=== PATIENT | male | born 1965 | race Asian ===

== ENCOUNTER 2018-10-09 08:48 | Emergency (ER) | payer OTHER, SELFPAY ==
[2018-10-09 08:49] VITALS: BP 165/106; PULSE 112; RESP 18; TEMP 36.6; O2SAT 99; BMI 29.1
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
[2018-10-09] MEDS: Diphth,Pertuss(Acell),Tet Vac 0.5 ML Vial IM (09:21)
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
[2018-10-09 11:18] LABS: HIV - WCH Non-Reactive (Nonreactive)
[2018-10-10 12:12] LABS: HEPATITIS B SURFACE AG Negative (Negative); Hep B Surface Antibodies EMP Non Reactive (.); Hep C Antibodies <0.1 s/co ratio (0.0-0.9)
== END 2018-10-09 11:12 | disposition home or self-care (01) ==
PROVIDERS: Emergency Provider Emergency Medicine; Family Provider Family Medicine; PCP Family Medicine
DX: S62.624A Displaced fracture of middle phalanx of right ring finger, initial encounter for closed fracture (principal); M20.011 Mallet finger of right finger(s); S10.91XA Abrasion of unspecified part of neck, initial encounter; Z77.21 Contact with and (suspected) exposure to potentially hazardous body fluids; Y35.91XA Legal intervention, means unspecified, law enforcement official injured, initial encounter; Y93.9 Activity, unspecified; Y92.238 Other place in hospital as the place of occurrence of the external cause; Y99.0 Civilian activity done for income or pay; Z23 Encounter for immunization; Z86.19 Personal history of other infectious and parasitic diseases
CPT/HCPCS: 73140; 86703; 86803; 87340; 90471; 90715; 99283

== ENCOUNTER 2018-10-17 05:54 | Day surgery (SDC) | payer OTHER, SELFPAY ==
[2018-10-11 10:20] VITALS: BMI 29.1
[2018-10-17 06:15] VITALS: BP 167/104; PULSE 64; RESP 16; TEMP 36.9; O2SAT 100; BMI 29.9
[2018-10-17] MEDS: amLODIPine 5 MG Tablet PO (06:39)
[2018-10-17] MEDS: Cefazolin 2 GM in 0.9% Normal Saline 100 ML IV (07:16)
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
--- NOTE | 2018-10-17 07:20 | DCINST_ITS ---
Discharge Diet: No Restrictions - may move finger at middle knuckle joint as much as tolerated, follow up in one week for repeat xrays and evaluation Discharge Activity: May Not Drive May shower in (days): 1 Ice area for (Minutes): 20 - Every hour while awake. Weight Bearing Status: Weight bearing as tolerated Keep extremity elevated above heart level: Operative Extremity Call your doctor if your incision/area has: Continuous Slow Oozing, Sudden Increased Bleeding, Increased Pain/ Swelling, Increased Redness, Foul Smelling Discharge Call your doctor if you observe: Fever of 101 or Higher, Coldness, Increased Pain, Numbness or Tingling, Change in Color, Calf discomfort Allergies/Adverse Reactions: Allergies No Known Allergies Allergy (Verified 10/15/18 14:20) Medications to take at Discharge amlodipine 5 mg tablet 5 mg PO DAILY 10/11/18 Primary Care Physician: Kole Lucero MD [Primary Care Provider] - Test Results: Test results from this visit will be discussed in further detail at your follow- up appointment, if applicable. Please Follow Up With: Sumi Elmore, - [phone]
--- NOTE | 2018-10-17 07:30 | RAD_ITS ---
STUDY: X-RAY - RIGHT HAND, ATTENTION RING FINGER REASON FOR EXAM: Pinning of finger fracture. TECHNIQUE: 7 intraoperative view(s) of the finger were obtained. COMPARISON: Radiographs 10/09/2018. FINDINGS: There are orthopedic pins transfixing a fifth middle phalangeal diaphyseal fracture in anatomical alignment and position. Electronically Signed: Maxwell Padgett MD at 10:37 EDT Tel , Service support , RAD/Finger(s) Min 2 Views
[2018-10-17 08:09] VITALS: BP 104/74; BP 140/100; PULSE 88; RESP 20; TEMP 36.2; O2SAT 93
[2018-10-17 08:15] VITALS: BP 108/75; BP 140/100; PULSE 83; RESP 18; O2SAT 93
[2018-10-17 08:30] VITALS: BP 115/76; BP 140/100; PULSE 74; RESP 18; O2SAT 97
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
[2018-10-17 08:45] VITALS: BP 132/86; BP 140/100; PULSE 74; RESP 17; TEMP 36.1; O2SAT 97
[2018-10-17] MEDS: HYDROcodone Bitartrate/Apap 5/325 Tablet PO (09:20)
[2018-10-17 09:29] VITALS: BP 131/100; BP 140/100; PULSE 73; RESP 18; TEMP 36.2; O2SAT 96
== END 2018-10-17 10:00 | disposition home or self-care (01) ==
LOC: SDC 05:55 → AC 05:57
PROVIDERS: Family Provider Family Medicine; PCP Family Medicine; Referring Provider Orthopaedic Surgery; Visit Provider Orthopaedic Surgery
PROC: (CPT 26727; principal; 2018-10-17 07:15)
DX: M20.011 Mallet finger of right finger(s) (principal); S62.624A Displaced fracture of middle phalanx of right ring finger, initial encounter for closed fracture; Y04.8XXA Assault by other bodily force, initial encounter; Y93.9 Activity, unspecified; Y92.9 Unspecified place or not applicable; Y99.0 Civilian activity done for income or pay; I10 Essential (primary) hypertension; Z79.899 Other long term (current) drug therapy
CPT/HCPCS: 26727; 73140; 76000; J7120; J2405

== ENCOUNTER → 2018-10-26 09:54 | Outpatient (CLI) | payer OTHER, SELFPAY ==
[2018-10-26 09:27] VITALS: BMI 29.9
--- NOTE | 2018-10-26 09:56 | RAD_ITS ---
STUDY: X-RAY - RIGHT HAND, ATTENTION RING FINGER REASON FOR EXAM: Injury, follow-up fracture. TECHNIQUE: 3 view(s) of the finger were obtained. COMPARISON: Radiographs 10/09/2018 and intraoperative images 10/17/2018. FINDINGS: Normal metacarpal. Normal metacarpophalangeal joint. Normal proximal phalanx. There are orthopedic pins transfixing the middle phalangeal fracture in anatomic alignment and position and an orthopedic pin traversing the distal interphalangeal joint. Normal proximal interphalangeal joint. RAD/Finger(s) Min 2 Views IMPRESSION: ORIF of middle phalangeal fracture without interval change. Electronically Signed: Maxwell Padgett MD at 15:52 EDT Tel , Service support ,
== END ==
PROVIDERS: Family Provider Family Medicine; PCP Family Medicine; Referring Provider Orthopaedic Surgery; Visit Provider Orthopaedic Surgery
DX: S62.624A Displaced fracture of middle phalanx of right ring finger, initial encounter for closed fracture (principal); M20.011 Mallet finger of right finger(s); X58.XXXA Exposure to other specified factors, initial encounter; Y93.9 Activity, unspecified; Y92.9 Unspecified place or not applicable; Y99.9 Unspecified external cause status
CPT/HCPCS: 73140

== ENCOUNTER → 2018-11-01 12:45 | Outpatient (CLI) | payer OTHER, SELFPAY ==
[2018-10-26 09:27] VITALS: BMI 29.9
--- NOTE | 2018-11-01 12:47 | RAD_ITS ---
STUDY: X-RAY - RIGHT HAND, ATTENTION RING FINGER REASON FOR EXAM: Injury. TECHNIQUE: 3 view(s) of the finger were obtained. COMPARISON: Radiographs 10/26/2018. FINDINGS: Normal metacarpal head. Normal metacarpophalangeal joint. Normal proximal phalanx. There are orthopedic pins transfixing the middle phalangeal fracture in anatomical alignment and position and an orthopedic pin transversing the distal interphalangeal joint. There is early callus formation. Normal proximal interphalangeal joint. RAD/Finger(s) Min 2 Views IMPRESSION: ORIF of middle phalangeal fracture with early callus formation. Electronically Signed: Maxwell Padgett MD at 15:00 EDT Tel , Service support ,
== END ==
PROVIDERS: Family Provider Family Medicine; PCP Family Medicine; Referring Provider Orthopaedic Surgery; Visit Provider Orthopaedic Surgery
DX: S62.629A Displaced fracture of middle phalanx of unspecified finger, initial encounter for closed fracture (principal); X58.XXXA Exposure to other specified factors, initial encounter; Y93.9 Activity, unspecified; Y92.9 Unspecified place or not applicable; Y99.9 Unspecified external cause status
CPT/HCPCS: 73140

== ENCOUNTER → 2018-12-20 14:36 | Outpatient (CLI) | payer OTHER, SELFPAY ==
[2018-12-04 14:35] VITALS: BMI 29.9
--- NOTE | 2018-12-20 14:40 | RAD_ITS ---
STUDY: X-RAY - RIGHT HAND REASON FOR EXAM: Fracture/surgery follow-up. TECHNIQUE: 3 view(s) of the hand. COMPARISON: Radiographs 11/01/2018. FINDINGS: Normal radiocarpal articulation. Normal distal radioulnar joint. Normal visualized carpal bones. Normal carpal articulations Normal carpometacarpal articulation of the thumb. Normal second through fifth carpometacarpal joints. Normal metacarpi. Normal metacarpophalangeal joint of the thumb. Normal interphalangeal joint of the thumb. Normal proximal and distal phalanges of the thumb. Normal metacarpophalangeal joints of the second through fifth fingers. Normal proximal and distal interphalangeal joints of the second through fifth fingers. There is interval removal of the orthopedic pins with the fracture of the fifth middle phalanx remaining in anatomical alignment and position. The soft tissue structures are unremarkable. RAD/Hand Min 3 Views IMPRESSION: Fracture of the fifth middle phalanx remaining in anatomic alignment and position following pin removal. Electronically Signed: Maxwell Padgett MD at 15:41 EDT Tel , Service support ,
== END ==
PROVIDERS: Family Provider Family Medicine; PCP Family Medicine; Referring Provider Orthopaedic Surgery; Visit Provider Orthopaedic Surgery
DX: S62.604A Fracture of unspecified phalanx of right ring finger, initial encounter for closed fracture (principal); X58.XXXA Exposure to other specified factors, initial encounter; Y93.9 Activity, unspecified; Y92.9 Unspecified place or not applicable; Y99.9 Unspecified external cause status
CPT/HCPCS: 73130

== ENCOUNTER 2019-01-31 17:00 | Outpatient (RCR) | payer OTHER, SELFPAY ==
[2018-12-20 14:55] VITALS: BMI 29.9
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
--- NOTE | 2019-01-31 17:45 | HP.OTDCSUM_ITS ---
HP - OT D/C Summary It has been my pleasure to treat CECILY HYDE under orders from Sumi Elmore DO, for the diagnosis of Finger fx of R RF for a total of 8 visit(s). Please see the following information for a summary of their discharge status. - Overall Improvement % Improvement: 85 - Objective Objective/Function: Completed reassessment 01/31/19 with results as follows: ROM: RF. - PIP R -21-0-100, L WFL. - DIP 18-40- extensor lag noted, L WFL. Strength. 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 - lateral pinch R 26, L 21. - tripod pinch: R 12, L 13. Due to increased extensor lag at R RF DIP swan neck deformity is starting with increased hyperextension at PIP. 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 Goal:: Rinku to increased R RF ROM to that at least 60% of L unaffcted RF ROM 4/ 5trials 80% of the time by d/c. Goal:: Rinku to have no more than 1/10 pain with repetitive movement 4/5 trials 80% of the time to promote increased ROM and strength by dc. Goal:: Rinku to return to PLOF and (I) for all with ADL/IADls including work-related tasks 4/5 trials 80% of th time by d/c. Goal:: Rinku to complete daily HEP and static progressive splint 45 trials 80% of the time to promote strength and ROM needed for form composite fist and increased movement of R RF by d/c. - Plan Plan: Rinku will be d/c'd at this time as he has maximized his rehabilitation potential. He is functional with R greenhouse worker and hand strength but increased deformity of RRF noted. He was educated on where and how to get oval 8 type splint for RRF to promote joint integrity and alignment when completing typing or noticing increased extensor lag. Rinku's RRF is unable to be corrected without further surgical intervention which he is not interested at this time and why OT has recommended protective splinting with oval 8 to help promote integrity. Rinku noted continued stiffness in RRF. He is to return to doctor if needed to complete treatment for it. He is to call OT with questions/concerns as they a rise. - D/C Information If there are questions or concerns regarding this patient's occupational therapy, please fell free to call me at [phone]. Thank you for the referr al of this patient. Sincerely, Misa Álvarez, OTR/L
== END 2019-01-31 19:00 | disposition home or self-care (01) ==
LOC: OT 17:00
PROVIDERS: Family Provider Family Medicine; PCP Family Medicine; Referring Provider Orthopaedic Surgery; Visit Provider Orthopaedic Surgery
DX: S62.609D Fracture of unspecified phalanx of unspecified finger, subsequent encounter for fracture with routine healing (principal)
CPT/HCPCS: 97110; 97166; 97168; 97530; 97760

== ENCOUNTER → 2020-05-15 | Outpatient (CLI) | payer OTHER, SELFPAY ==
[2019-01-11 16:08] VITALS: BMI 29.9
== END | disposition home or self-care (01) ==
LOC: LABSPEC 11:28
PROVIDERS: PCP Family Medicine; Referring Provider Family Medicine; Visit Provider Family Medicine
DX: Z20.828 Contact with and (suspected) exposure to other viral communicable diseases (principal)
CPT/HCPCS: 87635; U0003

== ENCOUNTER 2020-08-10 16:35 | Outpatient (RCR) | payer OTHER, SELFPAY ==
[2019-01-11 16:08] VITALS: BMI 29.9
[2020-09-01] MEDS: COVID-19 VACC, MRNA(PFIZER)/PF 30 MCG/0.3 ML SYRINGE IM (10:33)
== END 2020-11-10 23:59 ==
LOC: IMMUN 16:35
PROVIDERS: PCP Family Medicine; Referring Provider Family Medicine; Visit Provider Family Medicine
DX: Z23 Encounter for immunization (principal)
CPT/HCPCS: 0002A; 91300

== ENCOUNTER → 2021-02-02 | Outpatient (CLI) | payer OTHER, SELFPAY | END | disposition home or self-care (01) | LOC: LABSPEC 10:25 | PROVIDERS: PCP Family Medicine; Referring Provider Family Medicine; Visit Provider Family Medicine | DX: Z71.89 Other specified counseling (principal) | CPT/HCPCS: 87635; U0005; U0003 ==

== ENCOUNTER → 2021-02-24 08:23 | Outpatient (CLI) | payer OTHER, SELFPAY ==
[2021-02-24 10:32] LABS: Hemoglobin A1c 5.8 % (3.8-5.6)
[2021-02-24 10:40] LABS: ALB/GLOB Ratio 1.1 RATIO (0.9-2.4); AST(SGOT) 13 U/L (15-37); Alanine Aminotransfer ALT/SGPT 25 U/L (16-61); Albumin, Serum 3.9 g/dL (3.2-5.0); Alkaline Phosphatase 42 U/L (45-117); Anion Gap 4 (5-15); BUN 16 mg/dL (7-18); BUN/Creat Ratio 14.3 RATIO (10-20); Calcium,Total 8.9 mg/dL (8.5-10.1); Chloride 106 mmol/L (98-107); Creatinine, Serum 1.12 mg/dL (0.70-1.30); EST Glomerular Filtration Rate 73 mL/min (>60); Est Glom Filt Rate - Afr Amer 88 mL/min (>60); Globulin 3.5 g/dL (2.2-4.2); Glucose 108 mg/dL (74-106); PSA,Total - Annual Screen 1.48 ng/mL (0.00-4.00); Potassium 3.8 mmol/L (3.5-5.1); Protein, Total 7.4 g/dL (6.4-8.2); Sodium Level 141 mmol/L (136-145)
== END ==
LOC: MTLAB 08:25
PROVIDERS: PCP Family Medicine; Referring Provider Family Medicine; Visit Provider Family Medicine
DX: I10 Essential (primary) hypertension (principal); R73.01 Impaired fasting glucose; Z12.5 Encounter for screening for malignant neoplasm of prostate
CPT/HCPCS: 36415; 80053; 83036; 84153; G0103